=== PATIENT | female | born 1950 | race Caucasian/White ===

== ENCOUNTER 2023-01-18 16:00 | Emergency (ER) | payer MEDICARE, SELFPAY ==
[2023-01-18] VITALS (21 sets, daily range): BP systolic 115–190; BP diastolic 60–117; PULSE 61–82; RESP 16; TEMP 36.6; O2SAT 95–98; BMI 26.8
[2023-01-18 17:17] LABS: Add Manual Diff / Slide Review NO; Basophils Absolute Auto 100 /uL (0-100); Basophils Percent Auto 0.9 % (0-2); Eosinophils Absolute Auto 200 /uL (0-450); Eosinophils Percent Auto 3.6 % (2-4); Hematocrit 37.8 % (36-46); Hemoglobin 12.4 g/dL (12.0-16.0); Lymphocytes Absolute Auto 1600 /uL (1100-4500); Lymphocytes Percent Auto 25.5 % (25-40); Mean Corpuscular HGB Conc 32.7 % (30-36); Mean Corpuscular Hemoglobin 29.2 PG (26-34); Mean Corpuscular Volume 89.4 fL (80-100); Monocytes Absolute Auto 500 /uL (0-900); Monocytes Percent Auto 7.8 % (3-14); Neutrophils Absolute Auto 4000 /uL (1500-7000); Neutrophils Percent Auto 62.2 % (50-75); Platelet Count 205 X10^3/uL (150-400); Red Blood Cell Count 4.23 X10^6/uL (4.0-5.2); Red Cell Distribution Width 13.8 % (11.6-14.8); White Blood Cell Count 6.5 X10^3/uL (4.5-11.0)
[2023-01-18 17:26] LABS: Alanine Aminotransferase 15 IU/L (<35); Albumin 4.4 g/dL (3.5-5.0); Albumin Globulin Ratio 1.2 (1.0-2.8); Alkaline Phosphatase 72 U/L (38-126); Aspartate Aminotransferase 26 IU/L (14-36); BUN Creatinine Ratio 29.4 (6-22); Bilirubin Total 0.7 mg/dL (0.2-1.3); Blood Urea Nitrogen 20 mg/dL (7-17); Calcium 9.8 mg/dL (8.4-10.2); Carbon Dioxide 27 mmol/L (22-32); Chloride 106 mmol/L (98-107); Estimated Glomerular Filt Rate > 60 mL/min (>60); Globulin 3.8 g/dL (1.7-4.1); Glucose 86 mg/dL (80-110); Lipase 70 U/L (23-300); Potassium 4.4 mmol/L (3.4-5.1); Sodium 140 mmol/L (137-145); Total Protein 8.2 g/dL (6.3-8.2)
[2023-01-18 17:27] LABS: HEMOLYSIS 63 (0-50)
--- NOTE | 2023-01-18 17:33 | ED.GENADULT ---
HPI - General Adult <Tino Diaz DO - Last Filed: 01/18/23 18:22> General Chief complaint: Abdominal Pain Stated complaint: LOWER BACK PAIN, NO APPETITE, NAUSEA Time Seen by Provider: 01/18/23 17:18 Source: patient Mode of arrival: Ambulatory Limitations: no limitations History of Present Illness HPI narrative: 72-year-old female who is here for evaluation of left lower back and left lower quadrant abdominal pain for the past 2 weeks. She states she is had C diff for the past 2 years. She also states that for the past 2 weeks she is not been able eat because when she eats the symptoms get worse. She has had her gallbladder removed and also her appendix. She is not had any stools for the past couple days. No urinary symptoms. Denies any fevers. Was seen at the walk-in clinic at the beginning of this episode however no specific intervention and she is not improved. Does have some tenderness to palpation no fevers. Related Data Previous Rx's Medication Instructions Recorded hydrocodone 5 mg-acetaminophen 325 1 tab PO Q6HP PRN #10 tabs 09/07/ mg tablet (Beatrice) hydrocodone 5 mg-acetaminophen 325 1 tab PO Q4-6H PRN pain #10 tabs 01/18/23 mg tablet ketorolac 10 mg tablet 10 mg PO Q6H PRN pain #14 tabs 01/18/23 ondansetron 4 mg disintegrating 4 mg PO TID-QID PRN nausea and 01/18/23 tablet vomiting #10 tabs tamsulosin 0.4 mg capsule (Flomax) 0.4 mg PO DAILY #30 caps 01/18/23 Allergies Allergy/AdvReac Type Severity Reaction Status Date / Time Iodinated Contrast Media Allergy Severe ANAPHALACTI Verified 01/18/23 16:42 [IODINATED CONTRAST MEDIA - C IV DYE] shellfish derived Allergy Severe Anaphylaxis Verified 01/18/23 16:42 Review of Systems <Tino Diaz DO - Last Filed: 01/18/23 18:22> Constitutional Constitutional: Reports system reviewed and no additional complaints, except as documented Gastrointestinal Gastrointestinal: Reports system reviewed and no additional complaints, except as documented Genitourinary Genitourinary: Reports system reviewed and no additional complaints, except as documented Musculoskeletal Musculoskeletal: Reports system reviewed and no additional complaints, except as documented Integumentary/Breasts Skin/Breast: Reports system reviewed and no additional complaints, except as documented Hematologic/Lymphatic On Anticoagulants: No Patient History <DO Naresh Beltre Last Filed: 01/18/23 18:22> Social History Smoking Status: Never smoker Smoking Status: Never smoker alcohol intake frequency: 0-2 drinks per day Substance Use Type: does not use Exam <DO Naresh Beltre Last Filed: 01/18/23 18:22> Initial Vital Signs Initial Vital Signs: Vital Signs Temperature 97.9 F 01/18/23 16:38 Pulse Rate 82 01/18/23 16:38 Respiratory Rate 16 01/18/23 16:38 Blood Pressure 170/85 H 01/18/23 16:38 Pulse Oximetry 98 01/18/23 16:38 Oxygen Delivery Method Room Air 01/18/23 16:38 HENMT Head: normal to inspection and normocephalic Resp Effort & Inspection: normal respiratory effort Auscultation: clear to auscultation bilaterally Cardio Rate: regular rate Rhythm: regular rhythm GI Inspection: normal to inspection and non-distended Palpation: soft and tender Back/Spine/Pelvis Back: CVA tenderness left Skin General: no rashes or lesions noted Neuro Speech: speech normal Extrem General: capillary refill normal Psych Appearance: grossly normal and well kempt <Pedro Luis Elliott DO - Last Filed: 01/19/23 06:51> Initial Vital Signs Initial Vital Signs: Vital Signs Temperature 97.9 F 01/18/23 16:38 Pulse Rate 82 01/18/23 16:38 Respiratory Rate 16 01/18/23 16:38 Blood Pressure 170/85 H 01/18/23 16:38 Pulse Oximetry 98 01/18/23 16:38 Oxygen Delivery Method Room Air 01/18/23 16:38 Course <DO Naresh Beltre Last Filed: 01/18/23 18:22> Orders Ordered: Discontinued Medications Hydrocodone Bitart/Acetaminophen (Hydrocodone/Acet 5/325 Prepack) 1 bottle MISC SEEINSTR ONE Stop: 01/18/23 21:55 Last Admin: 01/18/23 22:24 Dose: 1 bottle Documented By: HNG Lidocaine HCl 6 ml/ Sodium (Chloride) 56 mls @ 336 mls/hr IV NOW ONE Stop: 01/18/23 20:50 Last Infusion: 01/18/23 21:25 Dose: 0 mls/hr Documented By: Admin: 01/18/23 21:04 Dose: 336 mls/hr Documented By: RB Ketorolac Tromethamine (Ketorolac 30 Mg/Ml Vial) 30 mg IV NOW ONE Stop: 01/18/23 18:04 Last Admin: 01/18/23 18:14 Dose: 30 mg Documented By: RB Ondansetron HCl (Ondansetron 4 Mg/2 Ml Inj) 4 mg IV NOW PRN PRN Reason: Nausea And Vomiting Last Admin: 01/18/23 18:14 Dose: 4 mg Documented By: RB Ondansetron HCl (Ondansetron 4 Mg Odt Prepack) 1 bottle MISC SEEINSTR ONE Stop: 01/18/23 21:55 Last Admin: 01/18/23 22:24 Dose: 1 bottle Documented By: DANIEL Tamsulosin HCl (Tamsulosin 0.4 Mg Capsule) 0.4 mg PO NOW ONE Stop: 01/18/23 19:45 Last Admin: 01/18/23 19:48 Dose: 0.4 mg Documented By: MELITON Vital Signs Vital signs: Vital Signs - 8 hr 01/18/23 16:38 01/18/23 17:11 01/18/23 17:30 Temperature 97.9 F Pulse Rate 82 Respiratory Rate 16 Blood Pressure 170/85 H 154/67 H 176/78 H Pulse Oximetry 98 Oxygen Delivery Method Room Air 01/18/23 17:44 01/18/23 17:44 01/18/23 17:45 Temperature Pulse Rate 72 Respiratory Rate Blood Pressure 153/69 H 139/60 Pulse Oximetry 95 Oxygen Delivery Method 01/18/23 17:45 01/18/23 18:00 01/18/23 18:00 Temperature Pulse Rate 72 73 Respiratory Rate Blood Pressure 115/61 Pulse Oximetry 98 98 Oxygen Delivery Method 01/18/23 18:16 01/18/23 18:16 Temperature Pulse Rate 79 Respiratory Rate Blood Pressure 190/74 H Pulse Oximetry 98 Oxygen Delivery Method <Pedro Luis Elliott DO - Last Filed: 01/19/23 06:51> Orders Ordered: Discontinued Medications Hydrocodone Bitart/Acetaminophen (Hydrocodone/Acet 5/325 Prepack) 1 bottle MISC SEEINSTR ONE Stop: 01/18/23 21:55 Last Admin: 01/18/23 22:24 Dose: 1 bottle Documented By: DANIEL Lidocaine HCl 6 ml/ Sodium (Chloride) 56 mls @ 336 mls/hr IV NOW ONE Stop: 01/18/23 20:50 Last Infusion: 01/18/23 21:25 Dose: 0 mls/hr Documented By: Admin: 01/18/23 21:04 Dose: 336 mls/hr Documented By: GILDARDO Ketorolac Tromethamine (Ketorolac 30 Mg/Ml Vial) 30 mg IV NOW ONE Stop: 01/18/23 18:04 Last Admin: 01/18/23 18:14 Dose: 30 mg Documented By: GILDARDO Ondansetron HCl (Ondansetron 4 Mg/2 Ml Inj) 4 mg IV NOW PRN PRN Reason: Nausea And Vomiting Last Admin: 01/18/23 18:14 Dose: 4 mg Documented By: GILDARDO Ondansetron HCl (Ondansetron 4 Mg Odt Prepack) 1 bottle [facility] SEEINSTR ONE Stop: 01/18/23 21:55 Last Admin: 01/18/23 22:24 Dose: 1 bottle Documented By: DANIEL Tamsulosin HCl (Tamsulosin 0.4 Mg Capsule) 0.4 mg PO NOW ONE Stop: 01/18/23 19:45 Last Admin: 01/18/23 19:48 Dose: 0.4 mg Documented By: MELITON Vital Signs Vital signs: Vital Signs - 8 hr 01/18/23 16:38 01/18/23 17:11 01/18/23 17:30 Temperature 97.9 F Pulse Rate 82 Respiratory Rate 16 Blood Pressure 170/85 H 154/67 H 176/78 H Pulse Oximetry 98 Oxygen Delivery Method Room Air 01/18/23 17:44 01/18/23 17:44 01/18/23 17:45 Temperature Pulse Rate 72 Respiratory Rate Blood Pressure 153/69 H 139/60 Pulse Oximetry 95 Oxygen Delivery Method 01/18/23 17:45 01/18/23 18:00 01/18/23 18:00 Temperature Pulse Rate 72 73 Respiratory Rate Blood Pressure 115/61 Pulse Oximetry 98 98 Oxygen Delivery Method 01/18/23 18:16 01/18/23 18:16 Temperature Pulse Rate 79 Respiratory Rate Blood Pressure 190/74 H Pulse Oximetry 98 Oxygen Delivery Method Medical Decision Making <Tino Joe, DO - Last Filed: 01/18/23 18:22> Lab Data Lab results reviewed: Yes I reviewed the patient's lab results. 01/18/23 17:00 01/18/23 17:00 Labs: Lab Results 01/18/23 01/18/23 01/18/23 Range/Units 17:00 17:00 20:15 WBC 6.5 (4.5-11.0) X10^3/uL RBC 4.23 (4.0-5.2) X10^6/uL Hgb 12.4 (12.0-16.0) g/dL Hct 37.8 (36-46) % MCV 89.4 (80-100) fL MCH 29.2 (26-34) PG MCHC 32.7 (30-36) % RDW 13.8 (11.6-14.8) % Plt Count 205 (150-400) X10^3/uL Neut % (Auto) 62.2 (50-75) % Lymph % (Auto) 25.5 (25-40) % Mora % (Auto) 7.8 (3-14) % Eos % (Auto) 3.6 (2-4) % Baso % (Auto) 0.9 (0-2) % Neut # (Auto) 4000 (0416-2367) /uL Lymph # (Auto) 1600 (0176-2581) /uL Mora # (Auto) 500 (0-900) /uL Eos # (Auto) 200 (0-450) /uL Baso # (Auto) 100 (0-100) /uL Sodium 140 (137-145) mmol/L Potassium 4.4 (3.4-5.1) mmol/L Chloride 106 (98-107) mmol/L Carbon Dioxide 27 (22-32) mmol/L BUN 20 H (7-17) mg/dL Creatinine 0.68 (0.52-1.04) mg/dL Estimated GFR > 60 (>60) mL/min BUN/Creatinine Ratio 29.4 H (6-22) Glucose 86 (80-110) mg/dL Calcium 9.8 (8.4-10.2) mg/dL Total Bilirubin 0.7 (0.2-1.3) mg/dL AST 26 (14-36) IU/L ALT 15 (<35) IU/L Alkaline Phosphatase 72 (38-126) U/L Total Protein 8.2 (6.3-8.2) g/dL Albumin 4.4 (3.5-5.0) g/dL Globulin 3.8 (1.7-4.1) g/dL Albumin/Globulin Ratio 1.2 (1.0-2.8) Lipase 70 (23-300) U/L Urine RBC 0-1/hpf (0-5/HPF) Urine WBC 0-1/hpf (0-5/HPF) Ur Squamous Epith Cells None seen (0-5/HPF) Urine Bacteria None seen (None) Urine Dip Bedside Urine Glucose Negative Bedside Urine Bilirubin - Negative Bedside Urine Ketone ++ 40 Urine Specific [place] 1.015 Bedside Urine Occult Blood +++ Bedside Urine pH 6.0 Bedside Urine Protein - Negative Bedside Urine Urobilinogen 0.2 Bedside Urine Nitrite - Negative Bedside Urine Leukocytes - Negative Esterase Point of care testing: Urine Dip Bedside Urine Glucose Negative Bedside Urine Bilirubin - Negative Bedside Urine Ketone ++ 40 Urine Specific [place] 1.015 Bedside Urine Occult Blood +++ Bedside Urine pH 6.0 Bedside Urine Protein - Negative Bedside Urine Urobilinogen 0.2 Bedside Urine Nitrite - Negative Bedside Urine Leukocytes - Negative Esterase ECG Data Attestation: I personally reviewed and interpreted this ECG as follows: Interpretation: Sinus rhythm Ventricular rate is 67 Normal axis Normal QRS Normal QTC No ST T wave changes MDM Narrative Medical decision making narrative: Patient does have a benign exam but has had 2 weeks of symptoms. Labs are unremarkable. CT scan ordered for further evaluation. Care turned over to Dr. Elliott to follow-up on CT scan and disposition. <Pedro Luis Elliott, - Last Filed: 01/19/23 06:51> Lab Data Labs: Lab Results 01/18/23 01/18/23 01/18/23 Range/Units 17:00 17:00 20:15 WBC 6.5 (4.5-11.0) X10^3/uL RBC 4.23 (4.0-5.2) X10^6/uL Hgb 12.4 (12.0-16.0) g/dL Hct 37.8 (36-46) % MCV 89.4 (80-100) fL MCH 29.2 (26-34) PG MCHC 32.7 (30-36) % RDW 13.8 (11.6-14.8) % Plt Count 205 (150-400) X10^3/uL Neut % (Auto) 62.2 (50-75) % Lymph % (Auto) 25.5 (25-40) % Mora % (Auto) 7.8 (3-14) % Eos % (Auto) 3.6 (2-4) % Baso % (Auto) 0.9 (0-2) % Neut # (Auto) 4000 (2500-7914) /uL Lymph # (Auto) 1600 (7931-3774) /uL Mora # (Auto) 500 (0-900) /uL Eos # (Auto) 200 (0-450) /uL Baso # (Auto) 100 (0-100) /uL Sodium 140 (137-145) mmol/L Potassium 4.4 (3.4-5.1) mmol/L Chloride 106 (98-107) mmol/L Carbon Dioxide 27 (22-32) mmol/L BUN 20 H (7-17) mg/dL Creatinine 0.68 (0.52-1.04) mg/dL Estimated GFR > 60 (>60) mL/min BUN/Creatinine Ratio 29.4 H (6-22) Glucose 86 (80-110) mg/dL Calcium 9.8 (8.4-10.2) mg/dL Total Bilirubin 0.7 (0.2-1.3) mg/dL AST 26 (14-36) IU/L ALT 15 (<35) IU/L Alkaline Phosphatase 72 (38-126) U/L Total Protein 8.2 (6.3-8.2) g/dL Albumin 4.4 (3.5-5.0) g/dL Globulin 3.8 (1.7-4.1) g/dL Albumin/Globulin Ratio 1.2 (1.0-2.8) Lipase 70 (23-300) U/L Urine RBC 0-1/hpf (0-5/HPF) Urine WBC 0-1/hpf (0-5/HPF) Ur Squamous Epith Cells None seen (0-5/HPF) Urine Bacteria None seen (None) Urine Dip Bedside Urine Glucose Negative Bedside Urine Bilirubin - Negative Bedside Urine Ketone ++ 40 Urine Specific [place] 1.015 Bedside Urine Occult Blood +++ Bedside Urine pH 6.0 Bedside Urine Protein - Negative Bedside Urine Urobilinogen 0.2 Bedside Urine Nitrite - Negative Bedside Urine Leukocytes - Negative Esterase Point of care testing: Urine Dip Bedside Urine Glucose Negative Bedside Urine Bilirubin - Negative Bedside Urine Ketone ++ 40 Urine Specific [place] 1.015 Bedside Urine Occult Blood +++ Bedside Urine pH 6.0 Bedside Urine Protein - Negative Bedside Urine Urobilinogen 0.2 Bedside Urine Nitrite - Negative Bedside Urine Leukocytes - Negative Esterase MDM Narrative Medical decision making narrative: Patient does have a benign exam but has had 2 weeks of symptoms. Labs are unremarkable. CT scan ordered for further evaluation. Care turned over to Dr. Elliott to follow-up on CT scan and disposition. [[id number]] (Earl) Patient received in sign out from [Joe]. I have reviewed the clinical course and performed an independent history and physical exam. CC: 72-year-old female with left lower quadrant pain, decreased appetite and nausea Complicating co-morbidities: Age Data collected from: Patient Medical records reviewed: Prior notes reviewed in our EMR Differential considered, but not limited to: Diverticulitis versus bowel obstruction versus kidney stone versus other Exam documented above, pertinent findings include: Abdomen is soft and nontender, left CVA tenderness Lab Test results independently reviewed as above. Pertinent findings: Independently reviewed EKG as above Imaging studies independently reviewed: No leukocytosis or left shift, electrolytes, renal function and LFTs within normal Treatments: Ketorolac, saline, zofran Re-evaluations: feeling better after above stated therapies Discussion: Patient with left flank pain and a history and physical exam consistent with kidney stone. Labs and imaging are reassuring and there is no sign of sepsis or renal failure. Pain is well controlled, she is tolerating orals and there is no sign of kidney failure. Patient is appropriate for discharge and follow-up. She is given prescriptions, return precautions and contact info for urology Disposition: see below, along with detailed discharge instructions that have been reviewed with patient as well as indications for ED re-evaluation and additional outpatient follow up Discharge Plan Departure Patient Disposition: Home Clinical Impression: Kidney stone Instructions: DI for Kidney Stones Activity Restrictions/Additional Instructions: *You have been diagnosed with [left-sided 5 mm proximal kidney stone] *What to do: *Please continue to take your regular medications as directed. [x ] New medication prescriptions sent to your pharmacy: [ [facility]] [ ] New medication written as a paper prescription [ ] No new medications given *Please follow up with Dr. Munoz (Urology) please call the office tomorrow and let them know you were seen in the emergency department and we would like you to be seen in the office for follow up. *Return to Emergency Department if you should have any new, worsening or concerning symptoms, such as [fever greater than 101 F, shaking chills, worsening pain, persistent vomiting or other bothersome symptoms] You have been prescribed a short course of narcotic medications. These are potentially dangerous and addictive medications that should be used carefully. While on these medications you cannot drive or operate heavy machinery. Additionally, you cannot sign legal documents or perform any duties such as this. Many people get constipated on narcotic medications so it would be advisable to discuss stool softeners with the pharmacist when you pick up man your prescription. Please understand that we cannot provide further refills of narcotics or controlled substances through the ED and your pain management will need to be through your Primary Care Provider Prescriptions: New hydrocodone-acetaminophen 5-325 mg tablet 1 tab PO Q4-6H PRN (Reason: pain) Qty: 10 0RF ketorolac 10 mg tablet 10 mg PO Q6H PRN (Reason: pain) Qty: 14 0RF tamsulosin [Flomax] 0.4 mg capsule 0.4 mg PO DAILY Qty: 30 0RF ondansetron 4 mg tablet,disintegrating 4 mg PO TID-QID PRN (Reason: nausea and vomiting) Qty: 10 0RF No Action hydrocodone-acetaminophen [Beatrice] 5 MG/325 MG tablet 1 tab PO Q6HP PRNQty: 10 0RF Referrals: Joaquin Dugan ARNP [Primary Care Provider] - Mirna Munoz MD [Physician] - Stand Alone Forms: Patient Portal/API
[2023-01-18] MEDS: KETOROLAC 30 MG/ML VIAL IV (18:14)
[2023-01-18] MEDS: ONDANSETRON 4 MG/2 ML INJ IV (18:14)
--- NOTE | 2023-01-18 18:15 | DI.CT.S_ITS ---
PROCEDURE: CT ABDOMEN PELVIS WO CON INDICATIONS: LLQ abd pain TECHNIQUE: Axial sections were acquired from the lung bases to the pubic symphysis. Coronal and sagittal reformats were performed. For radiation dose reduction, the following was used: automated exposure control, adjustment of mA and/or kV according to patient size. COMPARISON: [facility], CT, ABDOMEN/PELVIS WITHOUT CONTRAS, 01/12/2013, 8:31. FINDINGS: Image quality: Excellent. Lung bases: Unremarkable. Heart: No significant findings. URINARY: Right Kidney: There are two punctate nonobstructing right intrarenal calculi and several hyperdensities at the several papilla. No hydronephrosis or perinephric inflammation. Right Ureter: No hydroureter or right ureteral calculi. Left Kidney: Mild left hydronephrosis minimal perinephric inflammation. Left Ureter: 5 mm stone in the proximal left ureter with Hounsfield units of 532. Distally, the ureter is decompressed without other stones present. Bladder: Normal wall thickness. No stones. ABDOMEN: Liver: Unremarkable. Gallbladder: Surgically absent. Biliary ducts: Nondilated. Pancreas: Normal. Spleen: Normal size. Adrenal Glands: No masses. Stomach and Bowel: Stomach, small bowel loops, and colon are unremarkable. Surgically absent appendix. Occasional sigmoid diverticulosis. Peritoneum: No abnormal intraperitoneal fluid. No free air. Ventral Wall: Tiny fat containing umbilical hernia. Abdominal Nodes: No enlarged retroperitoneal or mesenteric lymph nodes. Vessels: Aorta and inferior vena cava are normal in size. PELVIS: Pelvic Organs: Uterus is normal. Ovarian tissue is not well seen. Pelvic Nodes: Unremarkable. Miscellaneous: No inguinal hernias are seen. Bones: Degenerative changes in the hips. IMPRESSION: 1. 5 mm left proximal ureteral calculus causing mild left hydronephrosis. 2. Nonobstructing punctate intrarenal calculi on the right. 3. Post cholecystectomy and appendectomy. Dictated by: Joana Noguera M.D. on 01/18/2023 at 18:53 Approved by: Joana Noguera M.D. on 01/18/2023 at 18:59
[2023-01-18] MEDS: TAMSULOSIN 0.4 MG CAPSULE PO (19:48)
[2023-01-18 21:04] LABS: Bacteria Urine None Seen; RBC Urine 0-1/HPF (0-5/HPF); Squamous Epithelial Cell Urine None Seen (0-5/HPF); WBC Urine 0-1/HPF (0-5/HPF)
[2023-01-18] MEDS: LIDOCAINE 2% (PF) 6 ML in SODIUM CHLORIDE 0.9% 50 ML 336 ML IV (21:04)
[2023-01-18] MEDS: HYDROCODONE/ACET 5/325 PREPACK 1 BOTTLE MISC (22:24)
[2023-01-18] MEDS: ONDANSETRON 4 MG ODT PREPACK 1 BOTTLE MISC (22:24)
== END 2023-01-18 22:35 | disposition home or self-care (01) ==
PROVIDERS: Emergency Medicine; Emergency Provider Emergency Medicine; Family Provider Registered Nurse; PCP Registered Nurse
DX: N20.0 Calculus of kidney (principal)
CPT/HCPCS: 36415; 74176; 80053; 81003; 81015; 83690; 85025; 87086; 93005; 96365; 96375; 99284; J1885; J2405

== ENCOUNTER 2023-04-06 10:47 | Emergency (ER) | payer MEDICARE, SELFPAY ==
[2023-04-06 10:49] VITALS: BP 177/89; PULSE 81; RESP 15; TEMP 36.4; O2SAT 95; BMI 187.5
--- NOTE | 2023-04-06 10:53 | DI.RAD.S_ITS ---
PROCEDURE: XR SHOULDER RT MIN 2V INDICATIONS: fall with pain, limited ROM TECHNIQUE: 3 views of the shoulder were acquired. COMPARISON: [facility], , SHOULDER MINIMUM 2VIEW RIGHT, 09/07/2016, 21:58. FINDINGS: Bones: No fractures or dislocations. No suspicious bony lesions. Visualized ribs appear intact. Degenerative changes of the right shoulder. Degenerative changes of the right acromioclavicular joint. Soft tissues: Calcifications in the lateral joint space of the shoulder. IMPRESSION: 1. Degenerative changes of the right glenohumeral joint and acromioclavicular joint. 2. Calcific tendinopathy. Dictated by: Oleg Rincon M.D. on 04/06/2023 at 11:22 Approved by: Oleg Rincon M.D. on 04/06/2023 at 11:24
--- NOTE | 2023-04-06 10:53 | DI.RAD.S_ITS ---
PROCEDURE: XR ELBOW RT MIN 3V INDICATIONS: fall with elbow pain TECHNIQUE: 3 views of the elbow were acquired. COMPARISON: None. FINDINGS: Bones: No fractures or dislocations. No suspicious bony lesions. Degenerative changes of the right elbow with medial epicondylar osteophytes. Soft tissues: No elbow joint effusion. No suspicious soft tissue calcifications. IMPRESSION: No acute abnormality of the right elbow. Dictated by: Oleg Rincon M.D. on 04/06/2023 at 11:25 Approved by: Oleg Rincon M.D. on 04/06/2023 at 11:26
--- NOTE | 2023-04-06 11:12 | ED.UPPEXIN ---
HPI - Extremity Injury (Upper) General Chief Complaint: Extremity Injury, Upper Stated Complaint: fall right shoulder pain Time Seen by Provider: 04/06/23 10:53 Source: patient Mode of arrival: Ambulatory History of Present Illness HPI narrative: 73-year-old female nonsmoker presents with her in the chief complaint of right shoulder pain for the past 3-4 weeks. She states that she had a ground level fall and has been having pain ever since. She states she tripped and fell onto her shoulder and now has limited range of motion secondary to pain but also perhaps mechanical obstruction. She denies fever or chills. She is not dizzy nor weak or lightheaded. She denies any nausea or vomiting. Her pain is worse when she moves and improves with rest. Related Data Previous Rx's Medication Instructions Recorded hydrocodone 5 mg-acetaminophen 325 1 tab PO Q6HP PRN #10 tabs 09/07/ mg tablet ([place]) hydrocodone 5 mg-acetaminophen 325 1 tab PO Q4-6H PRN pain #10 tabs 01/18/23 mg tablet ketorolac 10 mg tablet 10 mg PO Q6H PRN pain #14 tabs 01/18/23 ondansetron 4 mg disintegrating 4 mg PO TID-QID PRN nausea and 01/18/23 tablet vomiting #10 tabs tamsulosin 0.4 mg capsule (Flomax) 0.4 mg PO DAILY #30 caps 01/18/23 Allergies Allergy/AdvReac Type Severity Reaction Status Date / Time Iodinated Contrast Media Allergy Severe ANAPHALACTI Verified 04/06/23 10:49 [IODINATED CONTRAST MEDIA - C IV DYE] shellfish derived Allergy Severe Anaphylaxis Verified 04/06/23 10:49 Review of Systems Review of Systems Narrative: GENERAL: Denies chills, fatigue, malaise, fever, sweats. HEENT: Denies sinus pain, ear pain, sore throat, difficulty swallowing, dizziness. RESPIRATORY: Denies dyspnea, cough, wheezing, hemoptysis, sputum. CARDIOVASCULAR: Denies chest pain, palpitations, orthopnea, edema, GASTROINTESTINAL: Denies nausea, vomiting, abdominal pain, diarrhea, constipation, melena. : Denies dysuria, frequency, incontinence, hematuria, urinary retention. MUSCULOSKELETAL: See HPI SKIN: Denies rash, skin lesions, or other NEUROLOGIC: Denies weakness, headache, numbness, change in speech, confusion, seizures, incoordination. PSYCHIATRIC: No concerning psychosocial issues. 12 point review of systems is negative except for those stated above Patient History Social History Smoking Status: Never smoker Smoking Status: Never smoker alcohol intake frequency: holidays/special occasions only Substance Use Type: does not use Exam Narrative Exam Narrative: GENERAL: [73] year old patient appears stated age. Well-developed patient, in mild distress. HEAD: Atraumatic. Normocephalic. EYES: Pupils equal round and reactive. Extraocular motions intact. No scleral icterus. No injection or drainage. ENT: Nose without bleeding, purulent drainage. Throat without erythema, tonsillar hypertrophy or exudate. Airway patent. NECK: Trachea midline. Non tender CARDIOVASCULAR: Regular rate and rhythm without murmurs, gallops, or rubs. RESPIRATORY: Clear to auscultation. Breath sounds equal bilaterally. No wheezes, rales, or rhonchi. GASTROINTESTINAL: Abdomen soft, non-tender, nondistended. EXTREMITIES: Pain on palpation of right shoulder with no obvious deformity common limited range of motion secondary to pain and possibly mechanical obstruction, no redness or warmth, neurovascularly intact BACK: Nontender without deformity or crepitance. No flank tenderness. NEURO: AOx3. SKIN: No rash or erythema of visible areas Initial Vital Signs Initial Vital Signs: Vital Signs Temperature 97.6 F 04/06/23 10:49 Pulse Rate 81 04/06/23 10:49 Respiratory Rate 15 04/06/23 10:49 Blood Pressure 177/89 H 04/06/23 10:49 Pulse Oximetry 95 04/06/23 10:49 Oxygen Delivery Method Room Air 04/06/23 10:49 Procedures Orthopedic Splinting/Casting Injury #1: Side: right Upper Extremity Injury Location: shoulder Upper Extremity Immobilizer: sling/shoulder immobilizer Post splinting neuro exam: intact Post splinting vascular exam: intact Placed by: Nursing Course Orders Ordered: ED Orders 04/06/23 10:53 XR elbow RT min 3V Stat XR shoulder RT min 2V Stat Vital Signs Vital signs: Vital Signs - 8 hr 04/06/23 10:49 Temperature 97.6 F Pulse Rate 81 Respiratory Rate 15 Blood Pressure 177/89 H Pulse Oximetry 95 Oxygen Delivery Method Room Air MDM - Extremity Injury (Upper) MDM Narrative Medical decision making narrative: [73] year old patient presents with ground level fall and right shoulder pain Multiple etiologies for patient's symptoms considered including, but not limited to: [Fracture versus dislocation versus rotator cuff injury versus labral injury versus other] Prior Charts reviewed in our EMR Primary Historian: patient Imaging reviewed: X-ray shoulder and elbow without acute findings Patient's symptoms improved over duration of stay with above-stated therapies. Findings and discharge diagnosis discussed with patient/family followed by verbalization of understanding Return precautions discussed with patient/family whom verbalize understanding of diagnosis and plan Discharge Plan Departure Patient Disposition: Home Clinical Impression: Right shoulder strain Instructions: DI for Shoulder Sprain Activity Restrictions/Additional Instructions: *You have been diagnosed with [right shoulder injury. As we discussed your history and physical exam are reassuring and the x-rays show no evidence of fracture or dislocation. However there is concern about your rotator cuff or labrum at this point.] *What to do: *Please continue to take your regular medications as directed. [ ] New medication prescriptions sent to your pharmacy: [ ] [ ] New medication written as a paper prescription [ ] No new medications given *Please follow up with your primary care provider in 2-3 days, call for an appointment. Let them know you were seen in the Emergency Department and that we ask that you be seen in follow up. We will electronically transmit a record of today's note if your PCP is in our system * also, as we discussed I have included the contact information for the on-call orthopedist, please consider call in the office, let them know that you were seen in the emergency department and we would like you seen in follow-up *Return to Emergency Department if you should have any new, worsening or concerning symptoms, such as [fever greater than 101 F, shaking chills, worsening pain, persistent vomiting or other bothersome symptoms] Prescriptions: No Action hydrocodone-acetaminophen [[place]] 5 MG/325 MG tablet 1 tab PO Q6HP PRNQty: 10 0RF hydrocodone-acetaminophen 5-325 mg tablet 1 tab PO Q4-6H PRN (Reason: pain) Qty: 10 0RF ketorolac 10 mg tablet 10 mg PO Q6H PRN (Reason: pain) Qty: 14 0RF tamsulosin [Flomax] 0.4 mg capsule 0.4 mg PO DAILY Qty: 30 0RF ondansetron 4 mg tablet,disintegrating 4 mg PO TID-QID PRN (Reason: nausea and vomiting) Qty: 10 0RF Referrals: Joaquin Dugan ARNP [Primary Care Provider] - Boogie Alexander MD [Physician] - Stand Alone Forms: Patient Portal/API
== END 2023-04-06 11:50 | disposition home or self-care (01) ==
PROVIDERS: Emergency Provider Emergency Medicine; Family Provider Registered Nurse; PCP Registered Nurse
DX: S46.911A Strain of unspecified muscle, fascia and tendon at shoulder and upper arm level, right arm, initial encounter (principal); W01.0XXA Fall on same level from slipping, tripping and stumbling without subsequent striking against object, initial encounter
CPT/HCPCS: 73030; 73080; 99282; 99283

== ENCOUNTER 2024-05-22 18:32 | Emergency (ER) | payer MEDICARE, SELFPAY ==
[2024-05-22] VITALS (15 sets, daily range): BP systolic 129–207; BP diastolic 70–99; PULSE 77–100; RESP 17–18; TEMP 37; O2SAT 92–98; BMI 25.8
--- NOTE | 2024-05-22 20:18 | DI.CT.S_ITS ---
PROCEDURE: CT CHEST ABD PEL WO CON INDICATIONS: fall, pain TECHNIQUE: After the administration of oral contrast, 5 mm thick sections acquired from the lung apices to the symphysis pubis. 5 mm thick coronal and sagittal reformats acquired, with additional 7 mm coronal MIP reformats through the lungs. For radiation dose reduction, the following was used: automated exposure control, adjustment of mA and/or kV according to patient size. COMPARISON: None. FINDINGS: Image quality: Diagnostic. CHEST: Lower Neck: No enlarged lymph nodes. Thyroid: No thyroid nodules which require sonographic follow up, per consensus guidelines. Axillae: No enlarged lymph nodes. Chest Wall: 1.3 cm oval mass in the lateral right breast possibly representing a lymph node. Bones: Visualized osseous structures appear intact without acute fracture or focal destructive lesion. No acute compression fractures of the imaged spine. Lungs and Pleura: No pneumothorax or pleural effusions. No consolidation or suspicious nodules. Heart: Heart size is normal. No pericardial effusion. Thoracic Vessels: The aorta and pulmonary arteries demonstrate normal size. Mediastinum and Ruth: No enlarged lymph nodes. Esophagus: No wall thickening. No hiatal hernia. ABDOMEN: Liver: No solid mass. Gallbladder: Surgically absent Biliary ducts: No biliary dilation. Pancreas: No ductal dilation. Spleen: Size is within normal limits. Adrenal Glands: No adrenal nodules. Kidneys and Ureters: No hydronephrosis. No solid mass. No complex renal cystic lesion which requires follow up. Small bilateral punctate nonobstructing renal stones. Stomach and Bowel: Normal colonic caliber, without significant wall thickening. Postsurgical changes of prior appendectomy. No evidence for acute inflammatory changes or obstruction. Peritoneum: No abnormal intraperitoneal fluid. No free air. Ventral Wall: No hernia. Abdominal Nodes: No retroperitoneal or mesenteric adenopathy by size criteria. Vessels: Aorta and inferior vena cava are normal in size. PELVIS: Pelvic Organs: Unremarkable. Bladder: Unremarkable. Pelvic Nodes: No enlarged lymph nodes. Miscellaneous: No inguinal hernias are seen. Bones: No aggressive osseous abnormality. No acute fractures. Visualized pelvic ring appears intact. No diastasis of the sacroiliac joints. IMPRESSION: CT chest, abdomen, and pelvis without acute abnormalities or acute traumatic injury. Bilateral nonobstructing renal stones. No hydronephrosis. Other chronic findings as above Dictated by: Antonio Manuel M.D. on 05/22/2024 at 21:36 Approved by: Antonio Manuel M.D. on 05/22/2024 at 21:46
--- NOTE | 2024-05-22 22:35 | ED_ITS ---
HPI - Back Pain/Injury General Chief Complaint: Back Pain/Injury Stated Complaint: back and head pain s/p fall Time Seen by Provider: 05/22/24 21:45 Source: patient History of Present Illness HPI Narrative: 74-year-old female fell from ground level yesterday earlier today, complains of increasing pain to her right low back, right mid back, right flank area, right lower chest. No skin abrasion or laceration injuries, no bleeding. No numbness or tingling to her legs. She did not hit her head, had no loss of consciousness, no nausea or vomiting. No neck pain. She has not take blood thinner medications. Related Data Previous Rx's Medication Instructions Recorded hydrocodone 5 mg-acetaminophen 325 1 tab PO Q6HP PRN #10 tabs 09/07/ mg tablet ([place]) hydrocodone 5 mg-acetaminophen 325 1 tab PO Q4-6H PRN pain #10 tabs 01/18/23 mg tablet ketorolac 10 mg tablet 10 mg PO Q6H PRN pain #14 tabs 01/18/23 ondansetron 4 mg disintegrating 4 mg PO TID-QID PRN nausea and 01/18/23 tablet vomiting #10 tabs tamsulosin 0.4 mg capsule (Flomax) 0.4 mg PO DAILY #30 caps 01/18/23 methocarbamol 500 mg tablet 500 mg PO TID 7 days #21 tabs 05/22/24 methocarbamol 500 mg tablet 500 mg PO TID rhomboid muscle 05/22/24 strain 7 days #21 tabs Allergies Allergy/AdvReac Type Severity Reaction Status Date / Time Iodinated Contrast Media Allergy Severe ANAPHALACTI Verified 04/06/23 10:49 [IODINATED CONTRAST MEDIA - C IV DYE] shellfish derived Allergy Severe Anaphylaxis Verified 04/06/23 10:49 Review of Systems Review of Systems Narrative: Per HPI Patient History Social History Smoking Status: Never smoker Smoking Status: Never smoker alcohol intake frequency: holidays/special occasions only Substance Use Type: does not use Exam Narrative Exam Narrative: GENERAL: [] year old patient appears stated age. Well-developed patient, in mild distress. HEAD: Atraumatic. Normocephalic. EYES: Pupils equal round and reactive. Extraocular motions intact. No scleral icterus. No injection or drainage. ENT: Nose without bleeding, purulent drainage. Throat without erythema, tonsillar hypertrophy or exudate. Airway patent. NECK: Trachea midline. Non tender CARDIOVASCULAR: Regular rate and rhythm without murmurs, gallops, or rubs. RESPIRATORY: Clear to auscultation. Breath sounds equal bilaterally. No wheezes, rales, or rhonchi. GASTROINTESTINAL: Abdomen soft, non-tender, nondistended. EXTREMITIES: No edema or joint tenderness. BACK: Tenderness to right lumbar lower and upper paraspinal musculature, no midline tenderness, no abrasions or lacerations or erythema. Tenderness also to right flank area, somewhat lateral location as well, no subcutaneous air, no hematoma obvious. Tenderness to mid low right paraspinous T-spine musculature, no midline T-spine tenderness, no subcutaneous air, no hematoma obvious. No erythema or skin lacerations upper trunk. NEURO: AOx3. Grossly non focal SKIN: No rash or erythema of visible areas Initial Vital Signs Initial Vital Signs: Vital Signs Pulse Oximetry 97 05/22/24 18:38 Course Orders Ordered: ED Orders 05/22/24 20:18 CT chest abd pel wo con Stat Discontinued Medications Ketorolac Tromethamine (Ketorolac 30 Mg/Ml Vial) 30 mg IM NOW ONE Stop: 05/22/24 22:52 Last Admin: 05/22/24 23:05 Dose: 30 mg Documented By: MARY Methocarbamol (Methocarbamol 500 Mg Tablet) 500 mg PO NOW ONE Stop: 05/22/24 22:52 Last Admin: 05/22/24 22:56 Dose: 500 mg Documented By: MARY Tramadol HCl (Tramadol 50 Mg Prepack) 1 bottle MISC DIRECTED ONE Stop: 05/22/24 23:01 Last Admin: 05/22/24 23:08 Dose: 1 bottle Documented By: MARY Vital Signs Vital signs: Vital Signs - 8 hr 05/22/24 19:30 05/22/24 19:30 05/22/24 20:00 Pulse Rate 89 83 Respiratory Rate 18 Blood Pressure 134/71 Pulse Oximetry 98 96 05/22/24 20:00 05/22/24 20:36 05/22/24 21:00 Pulse Rate 90 80 Respiratory Rate Blood Pressure 129/70 Pulse Oximetry 98 98 05/22/24 21:30 05/22/24 22:00 05/22/24 22:30 Pulse Rate 83 82 77 Respiratory Rate Blood Pressure Pulse Oximetry 97 98 92 05/22/24 23:00 05/22/24 23:03 05/22/24 23:04 Pulse Rate 85 85 Respiratory Rate 18 Blood Pressure 176/82 H Pulse Oximetry 98 97 MDM - Back Pain/Injury Imaging Data CT Chest Abdomen Pelvis: Radiologist's Impression: [address] [address] [address] Scan Report Signed Patient: Constance Nance MR#: [id number] : 1950 Acct:[id number] Age/Sex: 74 / F Date of Service: 05/22/24 Loc: ED Accession Number: [id number] Procedure: CT chest abd pel wo con Ordering Provider: Elgin Loving MD PROCEDURE: CT CHEST ABD PEL WO CON INDICATIONS: fall, pain TECHNIQUE: After the administration of oral contrast, 5 mm thick sections acquired from the lung apices to the symphysis pubis. 5 mm thick coronal and sagittal reformats acquired, with additional 7 mm coronal MIP reformats through the lungs. For radiation dose reduction, the following was used: automated exposure control, adjustment of mA and/or kV according to patient size. COMPARISON: None. FINDINGS: Image quality: Diagnostic. CHEST: Lower Neck: No enlarged lymph nodes. Thyroid: No thyroid nodules which require sonographic follow up, per consensus guidelines. Axillae: No enlarged lymph nodes. Chest Wall: 1.3 cm oval mass in the lateral right breast possibly representing a lymph node. Bones: Visualized osseous structures appear intact without acute fracture or focal destructive lesion. No acute compression fractures of the imaged spine. Lungs and Pleura: No pneumothorax or pleural effusions. No consolidation or suspicious nodules. Heart: Heart size is normal. No pericardial effusion. Thoracic Vessels: The aorta and pulmonary arteries demonstrate normal size. Mediastinum and Ruth: No enlarged lymph nodes. Esophagus: No wall thickening. No hiatal hernia. ABDOMEN: Liver: No solid mass. Gallbladder: Surgically absent Biliary ducts: No biliary dilation. Pancreas: No ductal dilation. Spleen: Size is within normal limits. Adrenal Glands: No adrenal nodules. Kidneys and Ureters: No hydronephrosis. No solid mass. No complex renal cystic lesion which requires follow up. Small bilateral punctate nonobstructing renal stones. Stomach and Bowel: Normal colonic caliber, without significant wall thickening. Postsurgical changes of prior appendectomy. No evidence for acute inflammatory changes or obstruction. Peritoneum: No abnormal intraperitoneal fluid. No free air. Ventral Wall: No hernia. Abdominal Nodes: No retroperitoneal or mesenteric adenopathy by size criteria. Vessels: Aorta and inferior vena cava are normal in size. PELVIS: Pelvic Organs: Unremarkable. Bladder: Unremarkable. Pelvic Nodes: No enlarged lymph nodes. Miscellaneous: No inguinal hernias are seen. Bones: No aggressive osseous abnormality. No acute fractures. Visualized pelvic ring appears intact. No diastasis of the sacroiliac joints. IMPRESSION: CT chest, abdomen, and pelvis without acute abnormalities or acute traumatic injury. Bilateral nonobstructing renal stones. No hydronephrosis. Other chronic findings as above Dictated by: Antonio Manuel M.D. on 05/22/2024 at 21:36 Approved by: Antonio Manuel M.D. on 05/22/2024 at 21:46 MDM Narrative Medical decision making narrative: 74-year-old female with ground level fall, right lumbar, flank, mid lower thoracic area paraspinous muscular area discomfort. No skin injury changes. No midline spinal tenderness. No head or neck injury seem obvious. She is in considerable pain, seems to be unable to move well with exam. No respiratory distress, lungs clear. Declines injectable opiate analgesic. IM Toradol given. CT abdomen and pelvis chest imaging. CT trauma imaging negative for any internal injuries, no mention of any pneumothorax, no mention of any rib fractures, bony elements unremarkable, no free fluid peritoneal or retroperitoneal. Oral Robaxin muscle relaxant given, prescription for follow up sent to her pharmacy. Home pack tramadol to use if needed Patient feels better, much improved symptoms, requests to go home. Home with . Critical Care Time Critical Care Time Critical Care Time: Yes Total Critical Care Time: 31 Attestation: The high probability of a clinically significant, sudden or life threatening deterioration of the [musculoskeletal, spinal, abdominopelvic, Cardiothoracic] system(s) required my full and direct attention, intervention and personal management. The aggregate critical care time was [31] minutes. This time is in addition to time spent performing reported procedures but includes the following: [x] Data Review and interpretation [x] Patient assessment and monitoring of vital signs [x] Documentation [x] Medication orders and management Discharge Plan Departure Patient Disposition: Home Clinical Impression: Lumbar back sprain, Thoracic back sprain, Acute right flank pain, Fall from ground level Instructions: DI for Low Back Pain, DI for Muscle Strain, DI for Back Spasm Activity Restrictions/Additional Instructions: Fall on slippery surface at home this afternoon right-sided low back, mid back, flank discomfort that is worse with any movement. No loss of consciousness, no neck discomfort. On exam he seemed to have tenderness in the paraspinal musculature on the right side, no lumbar region and thoracic region, and somewhat in the vicinity of the right flank. This all might be muscular strain. No midline tenderness, hopefully there is no underlying spinal injury. CT scanning of the chest abdomen and pelvis was done, showing no internal injuries, no bony injuries. We discussed pain medication, you declined opiate pain medication for now. Intramuscular dose of Toradol given, with oral dose Robaxin muscle relaxant. Try muscle relaxant at home. Try [id number] ibuprofen and/or Tylenol as needed. Home pack of tramadol low potency analgesic also given if you want to end up trying that. Recheck symptoms with your regular doctor in the next couple of days. Return to this/nearest emergency department for any change worsening symptoms or any concerns prior Prescriptions: New methocarbamol 500 mg tablet 500 mg PO TID 7 Days Qty: 21 0RF methocarbamol 500 mg tablet 500 mg PO TID 7 Days Qty: 21 0RF No Action hydrocodone-acetaminophen [[place]] 5 MG/325 MG tablet 1 tab PO Q6HP PRNQty: 10 0RF hydrocodone-acetaminophen 5-325 mg tablet 1 tab PO Q4-6H PRN (Reason: pain) Qty: 10 0RF ketorolac 10 mg tablet 10 mg PO Q6H PRN (Reason: pain) Qty: 14 0RF tamsulosin [Flom[place]] 0.4 mg capsule 0.4 mg PO DAILY Qty: 30 0RF ondansetron 4 mg tablet,disintegrating 4 mg PO TID-QID PRN (Reason: nausea and vomiting) Qty: 10 0RF Referrals: Joaquin Dugan ARNP [Primary Care Provider] - Stand Alone Forms: Patient Portal/API
[2024-05-22] MEDS: methocarbamoL 500 MG TABLET PO (22:56)
[2024-05-22] MEDS: KETOROLAC 30 MG/ML VIAL IM (23:05)
[2024-05-22] MEDS: TRAMADOL 50 MG PREPACK 1 BOTTLE MISC (23:08)
== END 2024-05-22 23:13 | disposition home or self-care (01) ==
PROVIDERS: Emergency Provider Emergency Medicine; Family Provider Registered Nurse; PCP Registered Nurse
DX: S33.5XXA Sprain of ligaments of lumbar spine, initial encounter (principal); S23.3XXA Sprain of ligaments of thoracic spine, initial encounter; R07.9 Chest pain, unspecified; R10.9 Unspecified abdominal pain; W18.30XA Fall on same level, unspecified, initial encounter
CPT/HCPCS: 71250; 74176; 96372; 99283; 99284; J1885